=== PATIENT | male | born 1955 | race Caucasian/White ===

== ENCOUNTER 2016-11-27 15:08 | Emergency (ER) | payer MEDICARE, BC ==
[2016-11-27] MEDS ORDERED: Sodium Chloride 0.9% 10 ML Syringe FLUSH PRN (16:52)
[2016-11-27] MEDS ORDERED: Alum Hydrox/Mag Hydrox/Simeth 15 ML, Lidocaine 2% 15 ML PO ONE ×2 (16:53)
[2016-11-27] MEDS ORDERED: Aspirin 81 MG Tab.Chew PO ONE (16:54)
[2016-11-27] MEDS ORDERED: Iopamidol 755 Mg/ML 100 ML Bottle IV SCH (18:15)
[2016-11-27 18:58] VITALS: BP 154/78
--- NOTE | 2016-11-27 19:04 | EDM.PDOC ---
ED HPI GENERAL MEDICAL PROBLEM - General Chief Complaint: Chest Pain Stated Complaint: HEAVY CHEST NUMBNESS IN FINGERS AND FACE Time Seen by Provider: 11/27/16 16:24 Source of Information: Reports: Patient History Limitations: Reports: No Limitations - History of Present Illness INITIAL COMMENTS - FREE TEXT/NARRATIVE: Jones is a 61-year-old male with a history of high cholesterol and blood pressure who presents to the emergency department today with sudden onset of right lateral arm and leg tingling, facial tingling, chest pressure, cough and vomiting. Patient does report increased stress over several life changes last year. He denies any known history of anxiety or panic attacks. Patient does endorse mild shortness of breath, he does smoke 1 pack per day. Patient reports that activity makes his symptoms more severe, he has not taken anything for pain. Patient denies any known coronary artery disease but does report a family history of heart problems. Patient's chest pressure does increase with deep inspiration. 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 Patient denies any unilateral weakness or peripheral edema. Onset: Today, Sudden Anterior Chest Pain Score (Numeric/FACES): 3 - Related Data Allergies Allergy/AdvReac Type Severity Reaction Status Date / Time Rnjiguz-Qyv-Sna Reductase Allergy Muscle Verified 11/27/16 16:31 Inhibitor Weakness Home Meds: Home Meds Aspirin 1 tab PO DAILY 12/19/14 [History] Finasteride [Proscar] 1 tab PO DAILY 12/19/14 [History] Lisinopril 1 tab PO DAILY 12/19/14 [History] Meloxicam 1 tab PO DAILY 12/19/14 [History] Omeprazole 1 tab PO DAILY 12/19/14 [History] Tamsulosin [Flomax] 2 tab PO DAILY 12/19/14 [History] Past Medical History Cardiovascular History: Reports: Hypertension Other Cardiovascular History: ENLARGED HEART Gastrointestinal History: Reports: GERD - Past Surgical History GI Surgical History: Reports: Hernia, Abdominal Other Male Surgeries/Procedures: ENLARGED PROSTATE Other Endocrine Surgeries/Procedures: PARTIAL THYROID REMOVAL Other Neurological Surgeries/Procedures: 2 back surgeries. Other Musculoskeletal Surgeries/Procedures:: L4-L5 SPINAL FUSION Social & Family History - Tobacco Use Smoking Status *Q: Unknown Ever Smoked Years of Tobacco use: 25 Packs/Tins Daily: 1 - Recreational Drug Use Recreational Drug Use: No ED ROS GENERAL - Review of Systems Review Of Systems: ROS reveals no pertinent complaints other than HPI. ED EXAM, GENERAL - Physical Exam Exam: See Below Exam Limited By: No Limitations General Appearance: Alert, WD/WN, No Apparent Distress, Anxious Eye Exam: Bilateral Eye: EOMI, PERRL Ears: Normal External Exam Head: Atraumatic Neck: Normal Inspection Respiratory/Chest: No Respiratory Distress, Lungs Clear, Normal Breath Sounds, Other (midsternal chest wall tenderness on exam) Cardiovascular: Regular Rate, Rhythm, No Murmur GI/Abdominal: Normal Bowel Sounds, Soft, Non-Tender Back Exam: Normal Inspection Extremities: Normal Inspection, Normal Range of Motion Neurological: Alert, Oriented, CN II-XII Intact Psychiatric: Anxious (mildly) Skin Exam: Warm, Dry, Intact Lymphatic: No Adenopathy EKG INTERPRETATION EKG Date: 11/27/16 Time: 19:01 Rhythm: NSR [place]: Normal P-Wave: Present QRS: Normal ST-T: Normal QT: Normal Comparison: NA - No Prior EKG Course - Vital Signs Last Recorded V/S: Last Vital Signs Temp 37.0 C 11/27/16 16:25 Pulse 59 L 11/27/16 18:44 Resp 18 11/27/16 18:44 BP 154/78 H 11/27/16 18:44 Pulse Ox 96 11/27/16 18:44 Jones is a 61-year-old male with a history of hypertension and high cholesterol who presents to the emergency department today with complaints of vomiting, epigastric pain, chest pressure, numbness and tingling to all extremities and face. Patient reports his symptoms started just prior to arrival here. Patient denies any previous similar episodes. It is likely given patient's complaints and history of multiple stressors that this is likely anxiety produced. However, given patient's medical history, cardiac and pulmonary etiology is on the differential. EKG was obtained on arrival and is negative for any acute ischemic findings. Peripheral IV was established, blood work was obtained, white count returns with a mild leukocytosis of 12.1. CMP returns unremarkable other than a mildly elevated glucose of 113. Initial troponin is negative. D-dimer is mildly elevated at 464. Given patient's smoking history and elevated d-dimer, a CT PE was obtained which is negative for any pulmonary embolism. Patient was given a GI cocktail here which essentially resolved his pain. He reports he is feeling quite a bit better. I did offer patient a dose of Ativan, however, he did drive here and was unable to find a ride home so this was not given. I did discuss with patient that I feel his symptoms today were likely related to anxiety, I would like him to see his primary care provider early this next week to discuss this. I also discussed with patient smoking cessation. Reasons to return to the emergency department were discussed in detail.patient is agreeable to plan of care and was discharged in stable condition. Patient was notified of thyroid mass noted on CT scan, he can follow up with PCP regarding this. - Orders/Labs/Meds Orders: Active Orders 24 hr Category Date Time Status Peripheral IV Care [RC] . DIRECTED Care 11/27/16 16:52 Active Ang Chest [CT] Stat Exams 11/27/16 17:47 Taken Iopamidol [Isovue-370 (76%)] Med 11/27/16 18:15 Active 100 ml IV . DIRECTED Sodium Chloride 0.9% [Saline Flush] Med 11/27/16 16:52 Active 10 ml FLUSH ASDIRECTED PRN Peripheral IV Insertion Adult [OM.PC] Routine Oth 11/27/16 16:52 Ordered Medication Orders Iopamidol (Isovue-370 (76%)) 100 ml IV . DIRECTED MARGARITA Last Admin: 11/27/16 18:14 Dose: 100 ml Sodium Chloride (Saline Flush) 10 ml FLUSH ASDIRECTED PRN PRN Reason: Keep Vein Open Last Admin: 11/27/16 17:54 Dose: 10 ml Labs: Laboratory Tests 11/27/16 11/27/16 11/27/16 Range/Units 17:05 17:05 17:05 WBC 12.1 H (4.5-11.0) K/uL RBC 5.34 (4.30-5.90) M/uL Hgb 16.0 H (12.0-15.0) g/dL Hct 46.8 (40.0-54.0) % MCV 88 (80-98) fL MCH 30 (27-31) pg MCHC 34 (32-36) % Plt Count 231 (150-400) K/uL Neut % (Auto) 63 (36-66) % Lymph % (Auto) 26 (24-44) % [place] % (Auto) 9 H (2-6) % Eos % (Auto) 2 (2-4) % Baso % (Auto) 0 (0-1) % D-Dimer, Quantitative 464 H (0.0-400.0) ng/mL Sodium 141 (140-148) mmol/L Potassium 3.6 (3.6-5.2) mmol/L Chloride 105 (100-108) mmol/L Carbon Dioxide 26 (21-32) mmol/L Anion Gap 10.4 (5.0-14.0) mmol/L BUN 14 (7-18) mg/dL Creatinine 1.0 (0.8-1.3) mg/dL Est Cr Clr Drug Dosing TNP Estimated GFR (MDRD) > 60 (>60) Glucose 113 H (74-106) mg/dL Calcium 8.5 (8.5-10.1) mg/dL Total Bilirubin 0.5 (0.2-1.0) mg/dL AST 33 (15-37) U/L ALT 41 (12-78) U/L Alkaline Phosphatase 92 (46-116) U/L Troponin I 0.031 (0.000-0.056) ng/mL Total Protein 7.0 (6.4-8.2) g/dL Albumin 3.7 (3.4-5.0) g/dL Globulin 3.3 (2.3-3.5) g/dL Albumin/Globulin Ratio 1.1 L (1.2-2.2) Meds: Medications Generic Name Dose Route Start Last Admin Trade Name Freq PRN Reason Stop Dose Admin Iopamidol 100 ml 11/27/16 18:15 11/27/16 18:14 Isovue-370 (76%) IV 100 ml . DIRECTED MARGARITA Administration Sodium Chloride 10 ml 11/27/16 16:52 11/27/16 17:54 Saline Flush FLUSH 10 ml ASDIRECTED PRN Administration Keep Vein Open Discontinued Medications Generic Name Dose Route Start Last Admin Trade Name Freq PRN Reason Stop Dose Admin Aspirin 324 mg 11/27/16 16:54 11/27/16 17:02 Aspirin PO 11/27/16 16:55 324 mg ONETIME ONE Administration Al Hydroxide/Mg Hydroxide 15 0 ml 11/27/16 16:53 11/27/16 17:03 ml/ Lidocaine HCl 15 ml PO 11/27/16 16:54 30 ml ONETIME ONE Administration Sodium Chloride 70 mls @ 3 mls/sec 11/27/16 18:02 11/27/16 18:14 Normal Saline IV 11/27/16 18:03 3 mls/sec ASDIRECTED ONE Administration Departure - Departure Time of Disposition: 19:30 Disposition: Home, Self-Care 01 Condition: Good Clinical Impression: Anxiety - Discharge Information Instructions: Nonspecific Chest Pain, Ibyp-[id number], Panic Attacks Referrals: PCP,None [Primary Care Provider] - Additional Instructions: Please follow up with your primary doctor this next week to discuss anxiety. Consider quiting smoking. Discuss thyroid mass noted on CT scan. Return to the ED with any worsening/concerning symptoms. - My Orders Last 24 Hours: My Active Orders 11/27/16 16:52 Peripheral IV Care [RC] . DIRECTED Sodium Chloride 0.9% [Saline Flush] 10 ml FLUSH ASDIRECTED PRN Peripheral IV Insertion Adult [OM.PC] Routine 11/27/16 17:47 Ang Chest [CT] Stat 11/27/16 18:15 Iopamidol [Isovue-370 (76%)] 100 ml IV . DIRECTED - Assessment/Plan Last 24 Hours: My Active Orders 11/27/16 16:52 Peripheral IV Care [RC] . DIRECTED Sodium Chloride 0.9% [Saline Flush] 10 ml FLUSH ASDIRECTED PRN Peripheral IV Insertion Adult [OM.PC] Routine 11/27/16 17:47 Ang Chest [CT] Stat 11/27/16 18:15 Iopamidol [Isovue-370 (76%)] 100 ml IV . DIRECTED
== END 2016-11-27 19:32 | disposition home or self-care (01) ==
LOC: JP.ED 15:08
DX: F41.9 Anxiety disorder, unspecified (principal); I10 Essential (primary) hypertension; K21.9 Gastro-esophageal reflux disease without esophagitis; E78.00 Pure hypercholesterolemia, unspecified; Z98.890 Other specified postprocedural states; Z79.82 Long term (current) use of aspirin; Z79.899 Other long term (current) drug therapy; Z88.8 Allergy status to other drugs, medicaments and biological substances; Z98.1 Arthrodesis status
CPT/HCPCS: 36415; 71275; 80053; 84484; 85025; 85379; 99285; A9270; J7030; J7050; Q9967; 93005; 93010; 99284